=== PATIENT | male | born 1950 | race Caucasian/White ===

== ENCOUNTER 2024-07-09 14:03 | Emergency (ER) | payer OTHER, SELFPAY ==
--- NOTE | 2024-07-09 14:23 | ED.EAR ---
HPI - Ear Problem General Chief complaint: Ear Stated complaint: Something in LT Ear Time Seen by Provider: 07/09/24 14:23 Source: patient, RN notes reviewed and old records reviewed Mode of arrival: ambulatory Limitations: no limitations History of Present Illness HPI Narrative: patient presents with complaints of feeling as though something is in his left ear, and that his hearing is muffled as a result. he denies any pain. He denies any fever, chills, sweats. Voices no other concerns or complaints at this time Related Data Home Medications Medication Instructions Recorded Confirmed atorvastatin 40 mg tablet mg 07/09/24 gabapentin 300 mg capsule mg 07/09/24 tramadol 50 mg tablet mg 07/09/24 trazodone 50 mg tablet mg 07/09/24 Allergies Allergy/AdvReac Type Severity Reaction Status Date / Time rocuronium Allergy Other Verified 07/09/24 14:36 Review of Systems Review of Systems: All systems reviewed & are unremarkable except as noted in HPI and below Constitutional: Constitutional: Reports no additional constitutional complaints ENT: Reports system reviewed and no additional complaints, except as documented and Reports as per HPI Cardiovascular: Cardiovascular: Reports no additional cardiovascular complaints Respiratory: Respiratory: Reports no additional respiratory complaints Gastrointestinal: Gastrointestinal: Reports no additional gastrointestinal complaints [facility] Social History Social History (System 12/23/19 @ 10:27 by Milly Lubin) Smoking status: Former smoker Smoking end date: 10/21/91 Alcohol intake: current Comments At the time of my signature, I reviewed and agree with the nursing past medical, surgical, social, and family history. There is no relevant family history pertinent to the patient complaint. Exam Const: General: cooperative, no acute distress, alert and awake Orientation/consciousness: oriented to person, oriented to place and oriented to time HENMT: Head: normal to inspection Ears: TM normal on the right, Abnormal EAC present cerumen impaction on the left and unable to visualize TM on the left Resp: Effort & Inspection: normal respiratory effort and able to speak in complete sentences Auscultation: clear to auscultation bilaterally, no crackles, no rales, no rhonchi and no wheezes Cardio: Palpation: normal PMI Rate: regular rate Rhythm: regular rhythm Heart sounds: S1 normal heart sound present and S2 normal heart sound present Neuro: General: oriented to person, oriented to place and oriented to time Cranial nerves: Yes CN's II-XII intact bilaterally Psych: Appearance: grossly normal Thought process: Normal thought process present Insight: Good insight present (Psych) Judgement: Good judgement present (Psych) Course Course Level of Care: Express Care Visit Vital Signs Vital signs: Vital Signs Temperature 97.2 F L 07/09/24 14:30 Pulse Rate 68 07/09/24 14:30 Respiratory Rate 18 07/09/24 14:30 Blood Pressure 171/87 H 07/09/24 14:30 Pulse Oximetry 98 07/09/24 14:30 Oxygen Delivery Room Air 07/09/24 14:30 Temperature 97.2 F L 07/09/24 14:30 Pulse Rate 68 07/09/24 14:30 Respiratory Rate 18 07/09/24 14:30 Blood Pressure 171/87 H 07/09/24 14:30 Pulse Oximetry 98 07/09/24 14:30 Oxygen Delivery Room Air 07/09/24 14:30 Reviewed Procedures Ear Wax Removal Left Ear: Cerumenolytic Used: 5-10% Sodium Bicarb solution Results: Re-examined: cerumen removed completely TM Examination: TM(s) intact, normal appearance Ear Canal Exam: atraumatic Patient Tolerated Procedure: well Complications: no problems Technique: ear canal irrigated and ear canal curetted Medical Decision Making MDM Narrative Medical decision making narrative: cerumen removed without any complications. Elevated blood pressure discussed with patient. He agrees to discuss this with his primary car
[2024-07-09 14:30] VITALS: BP 171/87; PULSE 68; RESP 18; TEMP 36.2; O2SAT 98
== END 2024-07-09 14:51 | disposition home or self-care (01) ==
PROVIDERS: Emergency Provider Nurse Practitioner Family; PCP Physician Assistant
DX: H61.22 Impacted cerumen, left ear (principal); Z87.891 Personal history of nicotine dependence
CPT/HCPCS: 69210; 99212; A9270; G0463